=== PATIENT | male | born 1935 | race Two or more races ===

== ENCOUNTER 2022-06-27 10:20 | Inpatient (IN) | payer OTHER ==
[~2022-06-27] VITALS: Ht 160 cm; Wt 70.3 kg
--- NOTE | 2022-06-27 10:46 | NUR ---
SE RECIBE PTE ALERTA EN PERSONA SE ENCUENTRA EN COMPANIA DE FAMILIAR, FAMILIAR REFIERE QUE EN CUIDO DE ENVEJECIENTES PASO EL DR Y LO OSCULTO Y REFIRIO QUE PRESENTABA PULMONIA, SE CARLEEN VITALES Y MUESTRA CAPILAR ([phone]) SE COLOCA EN DINESH 0
--- NOTE | 2022-06-27 13:01 | NUR ---
PTE EVALAUDO POR DR. MONTGOMERY SE EJECUTA ORDEN EN NOLEN TOTALIADAD SE CARLEEN MUESTRA BAJO MEDIDAS ASEPTICAS, SE ORIENTA PTE SOBRE EL PROCEDIMIENTO PTE REFIERE ENTENDER
--- NOTE | 2022-06-27 13:12 | NUR ---
PACIENTE ALERTA Y ORIENTADO POR JAIRO. SE ORIENTA DE TRATAMIENTO YAZMIN ORDEN MEDICA. REFIERE ENTENDER. SE CANALIZA, SE CARLEEN MUESTRAS Y SE ADMINISTRAN MEDICAMENTOS CON MEDIDAS ASEPTICAS CORRESPONDIENTES. BARANDAS ELEVADAS POR NOLEN SEGURIDAD Y ACOMPANADO DE FAMILIAR.
--- NOTE | 2022-06-27 17:48 | NUR ---
SE ASISTE EN CAMBIO DE PANAL Y SABANAS.SE LE EXTRAEN MUESTRAS BAJO MEDIDAS ASEPTICAS Y SE ADMINISTRAN MEDICAMENTOS YAZMIN ORDEN MEDICA.
== END 2022-07-06 14:29 | disposition home or self-care (01) | DRG 191 ==
LOC: ER 10:20 → MEDI 18:32
PROVIDERS: ADMIT Specialist; ATTEND Specialist
PROC: 4A12X4Z Monitoring of Cardiac Electrical Activity, External Approach (ICD-10-PCS; principal; 2022-06-28)
PROC: 05HY33Z Insertion of Infusion Device into Upper Vein, Percutaneous Approach (ICD-10-PCS; 2022-06-28)
DX: J44.1 Chronic obstructive pulmonary disease with (acute) exacerbation (principal); J45.901 Unspecified asthma with (acute) exacerbation; N39.0 Urinary tract infection, site not specified; B96.4 Proteus (mirabilis) (morganii) as the cause of diseases classified elsewhere; J44.0 Chronic obstructive pulmonary disease with (acute) lower respiratory infection; I48.91 Unspecified atrial fibrillation; I11.9 Hypertensive heart disease without heart failure; I35.0 Nonrheumatic aortic (valve) stenosis; E11.649 Type 2 diabetes mellitus with hypoglycemia without coma; G30.9 Alzheimer's disease, unspecified; F02.80 Dementia in other diseases classified elsewhere, unspecified severity, without behavioral disturbance, psychotic disturbance, mood disturbance, and anxiety; E03.8 Other specified hypothyroidism; Z79.4 Long term (current) use of insulin

== ENCOUNTER 2022-07-22 21:21 | Inpatient (IN) | payer OTHER ==
[~2022-07-22] VITALS: Ht 167.6 cm; Wt 72.6 kg
--- NOTE | 2022-07-22 21:37 | NUR ---
PACIENTE MASCULINO LLEGA EN AMBULACIA ACOMPANADO DE NOLEN HIJO QUIEN REFIERE QUE ESTA POSITIVO A COVI, DIFICULTAD RESPIRATORI, FIEBRE, TOS PRODUCTIVA LO COLOCAMOS EN K6 BARRANDAS ELEVADAS Y TIEMBRES ACCESIBLE.
--- NOTE | 2022-07-22 23:28 | NUR ---
SE RECIBE PACIENTE ALERTA Y ORIENTADO POR JAIRO SE IDENTIFICA SE ORIENTA Y SE CARLEEN MUESTRA DE LABORATORIO BAJO MEDIDA ASEPTICA ORDEN EJECUTADA POR RN. LOPEZ
--- NOTE | 2022-07-23 00:55 | NUR ---
SE INSERTA VALLES BAJO MEDIDAS ASEPTICAS,SE CAMBIA KARRI.
--- NOTE | 2022-07-23 07:20 | NUR ---
PTE ALERTA,ESTABLE Y ORIENTADO.SE EDUCA SOBRE EL TRATAMIENTO QUE RECIBIRA EN EL HOSPITAL Y LORA REFIERE ENTENDER.SE MANTIENE EN LA ESPERA DEL
== END 2022-08-11 17:22 | disposition home or self-care (01) | DRG 177 ==
LOC: ER 21:21 → MEDJ 07-23 17:19 → MEDI 07-30 13:25 → MEDJ 07-31 16:20 → EDBD 08-11 17:22
PROVIDERS: ADMIT Specialist; ATTEND Specialist
PROC: 8E0ZXY6 Isolation (ICD-10-PCS; principal; 2022-07-23)
PROC: 4A12X4Z Monitoring of Cardiac Electrical Activity, External Approach (ICD-10-PCS; 2022-07-23)
PROC: 05HY33Z Insertion of Infusion Device into Upper Vein, Percutaneous Approach (ICD-10-PCS; 2022-07-25)
PROC: 5A0955A Assistance with Respiratory Ventilation, Greater than 96 Consecutive Hours, High Flow/Velocity Cannula (ICD-10-PCS; 2022-07-28)
PROC: B24BYZZ Ultrasonography of Heart with Aorta using Other Contrast (ICD-10-PCS; 2022-08-02)
DX: U07.1 COVID-19 (principal); J12.82 Pneumonia due to coronavirus disease 2019; J44.1 Chronic obstructive pulmonary disease with (acute) exacerbation; J45.901 Unspecified asthma with (acute) exacerbation; N39.0 Urinary tract infection, site not specified; N17.9 Acute kidney failure, unspecified; E11.65 Type 2 diabetes mellitus with hyperglycemia; R53.81 Other malaise; I11.9 Hypertensive heart disease without heart failure; I48.0 Paroxysmal atrial fibrillation; I35.0 Nonrheumatic aortic (valve) stenosis; B96.4 Proteus (mirabilis) (morganii) as the cause of diseases classified elsewhere; Z66 Do not resuscitate

== ENCOUNTER 2022-08-12 12:33 | Inpatient (IN) | payer OTHER ==
[~2022-08-12] VITALS: Ht 170.2 cm; Wt 81.6 kg
--- NOTE | 2022-08-12 12:40 | NUR ---
SE RECIBE MASCULINO EN ESTADO LETARGICO EN AMBULANCIA EN COMPANIA DE FAMILIAR QUIEN REFIERE QUE PACIENTE PRESENTA DIFICULTAD RESPIRATORIA, FIEBRE Y TOS DESDE CHANO.
--- NOTE | 2022-08-12 14:08 | NUR ---
PACIENTE EVALUADO POR DR. CASTAÑEDA QUIEN ORDENA TRATAMIENTO. SE ORIENTA FAMILIAR SOBRE TRATAMIENTO ORDENADO Y NORMAS DE LA UNIDAD EL CUAL REFIERE ENTENDER. SE REALIZAN MUESTRAS DE LABORATORIO BAJO MEDIDAS ASEPTICAS, SE ADMINISTRAN MEDICAMENTOS YAZMIN ORDEN MEDICA. SE REALIZA CAMBIO DE VALLES CATETER #16 BAJO MEDIDAS ASEPTICAS Y ESTERILES EL CUAL SE ENCUENTRA PATENTE CON EGRESO URINARIO DE 2O ML. SE COLOCA TUBO NASOGASTRICO EN FOSA NASAL DERECHA #18 EL CUAL SE ENCUENTRA EN LUGAR, PATENTE SIN RESIDUAL GASTRICO. SE OBSERVAN MULTIPLES ABRASIONES, EDEMA, HEMATOMA EN EXTREMIDADES SUPERIORES. PACIENTE PRESENTA AREA DE PRESION EN ESTRELLITA ARMANDO Y PULGAR DEL PIE ARMANDO. SE REALIZA CAMBIO DE PANAL EN LA CUAL PRESENTA EVACUACION COLOR MARKEL PASTOSA EN CANTIDAD MINIMA. PACIENTE PRESENTA FUERZA DE AGARRE EN AMBAS EXTREMIDADES SUPERIORES, REFLEJO PLANTAR BILATERAL POSITIVO, REFLEJO PUPILAR POSITIVO CON MIOSIS EN AMBAS PUPILAS, REFLEJO CORNEAL BILATERAL POSITIVO. SE MANTIENE PACIENTE CONECTADO A MONITOR CARDIACO Y OXIMETRIA EN TODO MOMENTO, CAMA BAJA Y BARANDAS ELEVADAS.
--- NOTE | 2022-08-12 15:08 | NUR ---
PATIENT IS RECIEVED IN BED WITH RAILINGS UP AND CONNECTED AND TELEMETRY. PATIENT HAS PATENT NASOGASTRIC TUBE AND VALLES TO GRAVITY AND IS BREATHING THROUGH NASAL CANULA. PATIENT HAS PENDING CONSULTATION WITH INTERNAL MEDICINE DOCTOR. PATIENT STAYS IN CRITICAL OBSERVATION FOR ANY CHANGES IN HIS CONDITION.
== END 2022-08-17 18:56 | disposition expired | DRG 177 ==
LOC: ER 12:33 → EDBD 12:38 → ICU-2 20:26 → SURG 08-14 02:17 → MEDJ 08-14 20:32
PROVIDERS: ADMIT Specialist; ATTEND Specialist
PROC: 4A12X4Z Monitoring of Cardiac Electrical Activity, External Approach (ICD-10-PCS; principal; 2022-08-13)
PROC: 02HV33Z Insertion of Infusion Device into Superior Vena Cava, Percutaneous Approach (ICD-10-PCS; 2022-08-13)
PROC: 8E0ZXY6 Isolation (ICD-10-PCS; 2022-08-15)
PROC: 5A0935A Assistance with Respiratory Ventilation, Less than 24 Consecutive Hours, High Flow/Velocity Cannula (ICD-10-PCS; 2022-08-16)
DX: J69.0 Pneumonitis due to inhalation of food and vomit (principal); A41.9 Sepsis, unspecified organism; J96.01 Acute respiratory failure with hypoxia; R65.21 Severe sepsis with septic shock; I21.A1 Myocardial infarction type 2; E46 Unspecified protein-calorie malnutrition; N39.0 Urinary tract infection, site not specified; Z16.24 Resistance to multiple antibiotics; Z16.12 Extended spectrum beta lactamase (ESBL) resistance; Z66 Do not resuscitate; I11.9 Hypertensive heart disease without heart failure; I48.0 Paroxysmal atrial fibrillation; D64.89 Other specified anemias; B96.89 Other specified bacterial agents as the cause of diseases classified elsewhere; B96.20 Unspecified Escherichia coli [E. coli] as the cause of diseases classified elsewhere